=== PATIENT | female | born 1985 | race Hispanic/Latino ===

== ENCOUNTER → 2017-06-30 | Day surgery (SDC) | payer OTHER ==
[~2017-06-30] MED LIST: ACETAMINOPHEN500 MG PO; FENTANYL CITRATE/PF 100MCG/2 ML INJ ONE; HYOSCYAMINE SULFATE 0.5 MG/ML AMP ONE; LIDOCAINE HCL 2% LOCAL INJ 5 ML SDV VIAL INJ ONE; LINZESS PO; MIDAZOLAM HCL 2 MG/2 ML VIAL ONE; PANTOPRAZOLE 40 MG 10ML VIAL ONE; PROPOFOL IV EMULSION 10 MG/ML 20 ML VIAL ONE; PROPOFOL IV EMULSION 10 MG/ML 50 ML VIAL ONE
--- NOTE | 2017-06-30 20:00 | Operative Report ---
DATE OF PROCEDURE: June 30, 2017 REFERRING PHYSICIAN: Dr. Mark Bernard PROCEDURES PERFORMED 1. Esophagogastroduodenoscopy with esophageal dilatation and biopsies. 2. Colonoscopy with polypectomy. INDICATIONS FOR EGD: Dysphagia, heartburn, indigestion. INDICATIONS FOR COLONOSCOPY: Constipation, history of bright red blood per rectum. MEDICATION: Patient was done under MAC. Please see anesthesiologist's note. PROCEDURE: With the patient in the left lateral decubitus position, the flexible fiberoptic Olympus gastroscope was introduced into the esophagus under direct visualization without any difficulty. There was some patchy erythema noted in the distal esophagus. There was a mild stricture noted at the GE junction, and that was dilated to size 52-Liberian Fuentes. The scope was then advanced with ease into the stomach. Mucosa overlying the antrum and the body revealed some patchy erythema and mild to moderate edema, and biopsies were obtained and sent to stain for H. pylori. Pylorus appeared to be of normal contour and shape. It was intubated with ease, and the scope was advanced all the way to the 2nd portion of the duodenum. The scope was then withdrawn slowly. Mucosa overlying the proximal 2nd portion as well as the duodenal bulb appeared to be within normal limits. The scope was then withdrawn back into the stomach and retroflexed, and mucosa overlying the fundus and cardia appeared to be within normal limits. The scope was then straightened out. It was subsequently withdrawn. Patient tolerated the procedure well. IMPRESSION 1. Distal esophagitis. 2. 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 3. Gastritis, biopsied. Biopsies sent to stain for H. pylori. PLAN: Follow up histology. Increase Protonix to 40 mg 1 p.o. a.c. b.i.d. The patient was then turned around. After adequate lubrication of the anal canal, a flexible fiberoptic Olympus colonoscope was inserted into the rectum with ease and advanced all the way to the cecum. Prep overall was suboptimal with retained stools in the colon. Whatever was visualized of the mucosa overlying the cecum, ascending, transverse, descending and sigmoid appeared to be grossly within normal limits other than for some minimal scattered diverticular disease in the left colon. There was a minute polyp noted in the distal rectum, and that was hot biopsied. The scope was then retroflexed into the distal rectum, and small internal hemorrhoids were noted, none of which was actively bleeding. The scope was then straightened out. The rectosigmoid area was decompressed. Scope was subsequently withdrawn. Patient tolerated the procedure well. IMPRESSION 1. Suboptimal prep. 2. Diverticulosis, minimal. 3. Rectal polyp, hot biopsied. 4. Small internal hemorrhoids, none actively bleeding. PLAN: Follow up histology. Initiate high-fiber, low-fat diet. Initiate high-fiber supplement. Check TSH. Continue Linzess. Increase water intake to 64 ounces of water a day. Start Benefiber 2 large tablespoonfuls in a glass of water once daily. Timing of followup colonoscopy pending pathology report. Job#: [id number] cc:TORSTEN BERNARD DO
== END | disposition home or self-care (01) ==
LOC: OR 10:48
PROVIDERS: ATTEND Internal Medicine Gastroenterology
DX: K29.50 Unspecified chronic gastritis without bleeding (principal); K62.1 Rectal polyp; K22.2 Esophageal obstruction; K20.9 Esophagitis, unspecified; K59.00 Constipation, unspecified; K57.30 Diverticulosis of large intestine without perforation or abscess without bleeding; K62.5 Hemorrhage of anus and rectum; K64.8 Other hemorrhoids; F41.9 Anxiety disorder, unspecified; Z68.36 Body mass index [BMI] 36.0-36.9, adult; Z80.0 Family history of malignant neoplasm of digestive organs
CPT/HCPCS: 36415; 43239; 43450; 45384; 84443; J1980; J2001; J2250; 45378

== ENCOUNTER 2018-10-10 13:03 | Emergency (ER) | payer BC ==
[~2018-10-10] VITALS: Ht 157.5 cm; Wt 90.7 kg
[~2018-10-10 13:03] MED LIST changes: -FENTANYL CITRATE/PF 100MCG/2 ML INJ ONE; -HYOSCYAMINE SULFATE 0.5 MG/ML AMP ONE; -LIDOCAINE HCL 2% LOCAL INJ 5 ML SDV VIAL INJ ONE; -MIDAZOLAM HCL 2 MG/2 ML VIAL ONE; -PANTOPRAZOLE 40 MG 10ML VIAL ONE; -PROPOFOL IV EMULSION 10 MG/ML 20 ML VIAL ONE; -PROPOFOL IV EMULSION 10 MG/ML 50 ML VIAL ONE
--- OUTSIDE RECORDS SUMMARY | 2018-10-10 13:05 | XMS REPORT ---
Author Author [facility] Address Unknown Phone Unavailable Care Team Providers Care Program Manufacturing Leader Name Role Phone Unavailable Unavailable Payers Payer Name Policy Type Policy Number Effective Date Expiration Date Problems This patient has no known problems. Allergies, Adverse Reactions, Alerts Allergy Name Allergy Type Status Severity Reaction(s) Onset Date Inactive Date Treating Clinician Comments No Known Allergies DA Active U 2018-07-15 00:00:00 No Known Allergies DA Active U 2017-06-01 00:00:00 Medications This patient has no known medications.
[2018-10-10] MEDS ORDERED: KETOROLAC TROMETHAMINE 30 MG/ML VIAL IV STA (13:13)
[2018-10-10] MEDS ORDERED: ONDANSETRON HCL INJ 2MG/ML 2ML 2 MG/ML VIAL IV STA (13:13)
[2018-10-10] MEDS ORDERED: MORPHINE SULFATE INJ 4 MG/ML INJ 1ML IV STA (13:13)
[2018-10-10] MEDS ORDERED: SODIUM CHLORIDE 0.9% 1000ML 1,000 ML IV STA (13:13)
[2018-10-10 13:41] LABS: BASOPHILS # (AUTO) 0.1 (0.0-0.1); BASOPHILS % 0.5 % (0.0-1.0); EOSINOPHILS # (AUTO) 0.2 (0.0-0.4); EOSINOPHILS % 1.6 % (0.0-6.0); HEMATOCRIT 38.6 % (34.2-44.1); LYMPHOCYTES # (AUTO) 2.1 (1.0-3.2); LYMPHOCYTES % 20.9 % (18.0-39.1); MEAN CORPUSCULAR HEMOGLOBIN 29.3 pg (28-32); MEAN CORPUSCULAR HGB CONC 33.7 g/dL (31-35); MEAN CORPUSCULAR VOLUME 86.9 fL (81-99); MONOCYTES # (AUTO) 0.6 (0.2-0.8); MONOCYTES % 6.3 % (4.4-11.3); NEUTROPHILS # (AUTO) 7.2 (2.1-6.9); NEUTROPHILS % 70.4 % (38.7-80.0); PLATELET COUNT 353 x10e3/uL (140-360); RED BLOOD COUNT 4.44 x10e6/uL (3.6-5.1); RED CELL DISTRIBUTION WIDTH 12.5 % (11.7-14.4)
[2018-10-10 13:58] LABS: ALANINE AMINOTRANSFERASE 21 IU/L (0-55); ALBUMIN 3.7 g/dL (3.5-5.0); ALBUMIN/GLOBULIN RATIO 1.1 (0.8-2.0); ALKALINE PHOSPHATASE 160 IU/L (40-150); ANION GAP 11.8 mmol/L (8-16); BLOOD UREA NITROGEN 13 mg/dL (7-26); BUN/CREATININE RATIO 16 (6-25); CALCIUM 9.8 mg/dL (8.4-10.2); CARBON DIOXIDE 25 mmol/L (22-29); CHLORIDE 104 mmol/L (98-107); CREATININE, SERUM 0.79 mg/dL (0.57-1.11); EST GLOMERULAR FILTRATION RATE > 60 ML/MIN (60-); GLUCOSE 73 mg/dL (74-118); POTASSIUM 3.8 mmol/L (3.5-5.1); SODIUM 137 mmol/L (136-145)
[2018-10-10 14:15] LABS: BILIRUBIN,URINE NEGATIVE (NEGATIVE); CLARITY,URINE SL CLOUDY (CLEAR); COLOR,URINE YELLOW (YELLOW); KETONES,URINE NEGATIVE (NEGATIVE); LEUKOCYTE ESTERASE ,URINE NEGATIVE (NEGATIVE); NITRITE,URINE NEGATIVE (NEGATIVE); PROTEIN,URINE DIPSTICK NEGATIVE (NEGATIVE); URINE UROBILINOGEN 0.2 mg/dL (0.2 - 1)
[2018-10-10 14:26] LABS: RBC,URINE 0-5 /HPF (0-5)
--- NOTE | 2018-10-10 15:20 | Diagnostic Imaging Report ---
EXAM: CT Abdomen and Pelvis WITHOUT contrast INDICATION: ^STONE PROTOCOL ^[id number] ^1415 ^Y COMPARISON: None. TECHNIQUE: Abdomen and pelvis were scanned utilizing a multidetector helical scanner from the lung base to the pubic symphysis without administration of IV contrast. Absence of intravenous contrast decreases sensitivity for detection of focal lesions and vascular pathology. Coronal and sagittal reformations were obtained. Routine protocol was performed. IV CONTRAST: None ORAL CONTRAST: Water COMPLICATIONS: None RADIATION DOSE: Total DLP: 673.81 mGy*cm Estimated effective dose: (DLP x 0.015 x size factor) mSv CTDIvol has been reviewed. It is below the limits set by the Radiation Protocol Committee (RPC). FINDINGS: LINES and TUBES: None. LOWER THORAX: 4 mm right middle lobe nodule. 5 mm pleural-based left lower lobe nodule. HEPATOBILIARY: Hepatomegaly, measuring 22 cm. Evaluation of hepatic parenchyma is limited without intravenous contrast. No steatosis. No biliary ductal dilation. GALLBLADDER: No radio-opaque stones or sludge. No wall thickening. SPLEEN: No splenomegaly. PANCREAS: No focal masses or ductal dilatation. ADRENALS: No adrenal nodules KIDNEYS/URETERS: Connecting renal inferior poles, representing a horseshoe kidney. No hydronephrosis. Limited for evaluation of renal parenchyma without intravenous contrast. No stones. GI TRACT: No abnormal distention, wall thickening, or evidence of bowel obstruction. Appendix is normal. PELVIC ORGANS/BLADDER: The uterus is absent. Bladder is unremarkable. 2.3 cm left ovarian cyst. LYMPH NODES: No lymphadenopathy. VESSELS: Unremarkable. Surgical clips are seen adjacent to the left external iliac vessels. PERITONEUM / RETROPERITONEUM: No free air or fluid. BONES: Proximal right femur and right femoral head sclerotic foci, likely bone islands. SOFT TISSUES: Abdominal wall eventration with a small fat-containing umbilical hernia. IMPRESSION: 1. Horseshoe kidney. No nephrolithiasis or evidence of obstructive urolithiasis. 2. Hepatomegaly. 3. Nonspecific lung nodules as described above. Without risk factors, no follow-up is necessary. With risk factors, follow-up with low-dose chest CT in one year is recommended. Signed by: Dr. Torsten Michel MD on 10/10/2018 3:17 PM
[2018-10-10 16:18] VITALS: BP 122/83
== END 2018-10-10 16:32 | disposition home or self-care (01) ==
LOC: ER 13:03
DX: R10.31 Right lower quadrant pain (principal); R11.0 Nausea; M54.5 Low back pain; I10 Essential (primary) hypertension
CPT/HCPCS: 36415; 74176; 80053; 81001; 84550; 85025; 87086; 99284; J1885; J2270; J2405; J7030

== ENCOUNTER 2022-01-24 21:55 | Emergency (ER) | payer BC, OTHER ==
[~2022-01-24] VITALS: Ht 157.5 cm; Wt 88.5 kg
[2022-01-24] MEDS ORDERED: ORPHENADRINE CITRATE 30 MG/ML VIAL IM ONE (22:30)
[2022-01-24] MEDS ORDERED: KETOROLAC TROMETHAMINE 60 MG/2 ML VIAL IM ONE (22:30)
[2022-01-24] MEDS ORDERED: ORPHENADRINE CITRATE 30 MG/ML VIAL ONE (22:40)
[2022-01-24] MEDS ORDERED: KETOROLAC TROMETHAMINE 60 MG/2 ML VIAL ONE (22:40)
[2022-01-24 22:46] LABS: CLARITY,URINE SL CLOUDY (CLEAR); COLOR,URINE YELLOW (YELLOW); KETONES,URINE NEGATIVE (NEGATIVE); LEUKOCYTE ESTERASE ,URINE NEGATIVE (NEGATIVE); NITRITE,URINE NEGATIVE (NEGATIVE); PROTEIN,URINE DIPSTICK NEGATIVE (NEGATIVE); URINE UROBILINOGEN 1 mg/dL (0.2 - 1)
[2022-01-24 22:53] LABS: AMORPHOUS SEDIMENT,URINE FEW (FEW); BACTERIA,URINE FEW /HPF; CALCIUM OXALATE CRYSTALS,UR MODERATE (FEW); EPITHELIAL CELLS,URINE MODERATE /LPF; WBC,URINE (MAN) 0-5 /HPF (0-5)
[2022-01-24] MEDS ORDERED: NAPROSYN500 MG PO (23:07)
[2022-01-24] MEDS ORDERED: CYCLOBENZAPRINE5 MG PO (23:07)
== END 2022-01-24 23:14 | disposition home or self-care (01) ==
LOC: ER 22:13
DX: R10.32 Left lower quadrant pain (principal); S39.012A Strain of muscle, fascia and tendon of lower back, initial encounter; M25.562 Pain in left knee; W18.39XA Other fall on same level, initial encounter; Y92.89 Other specified places as the place of occurrence of the external cause
CPT/HCPCS: 72100; 73502; 73562; 81001; 99283; J1885; J2360

== ENCOUNTER 2024-08-28 20:02 | Emergency (ER) | payer BC, OTHER ==
[~2024-08-28] VITALS: Ht 157.5 cm; Wt 88.5 kg
[~2024-08-28 20:02] MED LIST changes: +CYCLOBENZAPRINE5 MG PO; +NAPROSYN500 MG PO
[2024-08-28 21:22] VITALS: TEMP 98.5
[2024-08-28] MEDS: SODIUM CHLORIDE 0.9% 1000ML 1,000 ML IV STA (21:40)
[2024-08-28] MEDS: LIDOCAINE VISC 2% SOLN 15 ML UDC PO STA (21:40)
[2024-08-28] MEDS: MAGNESIUM/ALUMINUM/SIMETHICONE 30 ML UDC PO STA (21:40)
[2024-08-28] MEDS: Morphine 4mg INJECTION 4 MG/ML INJ IV STA (21:40)
[2024-08-28] MEDS: BELLADONNA ALK/PHENOBARBITAL 5 ML UDC PO ONE (21:40)
[2024-08-28 21:43] LABS: COLOR,URINE YELLOW (YELLOW)
[2024-08-28 21:44] LABS: CLARITY,URINE SL CLOUDY (CLEAR)
[2024-08-28 21:49] LABS: BILIRUBIN,URINE SMALL (NEGATIVE); GLUCOSE, URINE NEGATIVE (NEGATIVE); KETONES,URINE TRACE (NEGATIVE); LEUKOCYTE ESTERASE ,URINE NEGATIVE (NEGATIVE); NITRITE,URINE NEGATIVE (NEGATIVE); PH,URINE 8 (5 - 7); PREGNANCY TEST, URINE NEGATIVE (NEGATIVE); PROTEIN,URINE DIPSTICK 1+ (NEGATIVE)
[2024-08-28] MEDS ORDERED: IOPAMIDOL 370 MG/ML 100 ML INFUS..BTL INJ ONE (21:55)
[2024-08-28 22:07] LABS: WBC,URINE (MAN) 0-5 /HPF (0-5)
[2024-08-28 22:08] LABS: BACTERIA,URINE MODERATE /HPF; EPITHELIAL CELLS,URINE MODERATE /LPF; RBC,URINE 0-5 /HPF (0-5)
[2024-08-28 22:13] LABS: ALBUMIN 4.1 g/dL (3.5-5.0); ALBUMIN/GLOBULIN RATIO 1.2 (0.8-2.0); ANION GAP 13.8 mmol/L (8-16); BILIRUBIN,TOTAL 0.4 mg/dL (0.2-1.2); CALCIUM 8.9 mg/dL (8.4-10.2); CREATININE, SERUM 0.86 mg/dL (0.57-1.11); POTASSIUM 3.8 mmol/L (3.5-5.1); TOTAL PROTEIN 7.5 g/dL (6.5-8.1)
[2024-08-28 22:28] LABS: BASOPHILS # (AUTO) 0.1 (0.0-0.1); BASOPHILS % 0.7 % (0.0-1.0); EOSINOPHILS # (AUTO) 0.2 (0.0-0.4); EOSINOPHILS % 2.5 % (0.0-6.0); HEMATOCRIT 40.8 % (34.2-44.1); HEMOGLOBIN 13.9 g/dL (12.0-16.0); LYMPHOCYTES # (AUTO) 2.5 (1.0-3.2); LYMPHOCYTES % 29.2 % (18.0-39.1); MEAN CORPUSCULAR HEMOGLOBIN 30.7 pg (28-32); MEAN CORPUSCULAR HGB CONC 34.1 g/dL (31-35); MEAN CORPUSCULAR VOLUME 90.1 fL (81-99); MONOCYTES # (AUTO) 0.5 (0.2-0.8); MONOCYTES % 5.7 % (4.4-11.3); NEUTROPHILS # (AUTO) 5.2 (2.1-6.9); NEUTROPHILS % 61.5 % (38.7-80.0); PLATELET COUNT 401 x10e3/uL (140-360); RED BLOOD COUNT 4.53 x10e6/uL (3.6-5.1); RED CELL DISTRIBUTION WIDTH 12.3 % (11.7-14.4); WHITE BLOOD COUNT 8.46 x10e3/uL (4.8-10.8)
[2024-08-28 22:33] VITALS: PULSE 87; RESP 18
[2024-08-28] MEDS ORDERED: ONDANSETRON ODT4 MG PO (22:47)
[2024-08-28] MEDS ORDERED: PANTOPRAZOLE SO40 MG PO (22:47)
[2024-08-28 22:54] VITALS: BP 137/81; PULSE 76; RESP 17; O2SAT 100
== END 2024-08-28 22:56 | disposition home or self-care (01) ==
LOC: ER 20:05
DX: R10.13 Epigastric pain (principal); K27.9 Peptic ulcer, site unspecified, unspecified as acute or chronic, without hemorrhage or perforation
CPT/HCPCS: 36415; 74177; 80053; 81001; 81025; 83690; 85025; 99284; J2270; J7030; Q9967